=== PATIENT | male | born 2000 | race Caucasian/White ===

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

== ENCOUNTER 2022-01-19 12:58 | Emergency (ER) | payer OTHER ==
[~2022-01-19 12:58] MED LIST: Iopamidol 370 76% 100 ML VIAL ONE
[2022-01-19] MEDS ORDERED: Sodium Chloride 0.9% 1,000 ML ONE ×2 (13:39→16:11)
[2022-01-19] MEDS ORDERED: Ketorolac Tromethamine 30 MG/ML VIAL ONE ×2 (13:39→15:33)
[2022-01-19 14:15] LABS: ALT (SGPT) 40 U/L (8-55); AST (SGOT) 29 U/L (10-45); Albumin 4.8 g/dL (3.5-5.0); Alkaline Phosphatase 84 U/L (50-130); Anion Gap 16 mmol/L (10-20); BUN (Urea Nitrogen) 11 mg/dL (8.4-21.0); Bilirubin, Total 0.8 mg/dL (0.2-1.2); Calc. Creatinine Clearance 0 mL/min (70-130); Carbon Dioxide 22 mmol/L (22-29); Chloride 106 mmol/L (98-107); Estimated GFR 129; Globulin 2.4 g/dL (2.4-3.5); Glucose 94 mg/dL (70-105); Lipase 19 U/L (8-78); Magnesium 2.2 mg/dL (1.7-2.2); Protein, Total 7.2 g/dL (6.0-8.3); Sodium 140 mmol/L (136-145)
[2022-01-19 14:20] LABS: Hemoglobin 15.9 g/dL (14.0-18.0); Mean Corpuscular HGB CONC 33.6 g/dL (32.0-36.0); Mean Corpuscular Hemoglobin 29.3 pg (25.0-35.0); Mean Corpuscular Volume 87.3 fL (78.0-98.0); Platelet Count 212 thou/uL (130-400); RBC Distribution Width 10.9 % (11.5-14.5); Red Blood Cell (RBC) Count 5.43 mill/uL (4.00-5.20); White Blood Cell (WBC) Count 6.8 thou/uL (4.8-10.8)
[2022-01-19 14:21] LABS: Band 5 % (5-11); Eosinophils 1 % (0-10); Lymphocytes 14 % (28-48); MDiff Complete? YES; Monocytes 5 % (0-4); Neutrophil 68 % (31-61); Platelet Morphology Comment Appears Adequate; RBC Morphology Normal; Reactive Lymphocytes 7 % (0-10)
[2022-01-19 15:14] LABS: Bilirubin Negative (Negative); Blood, Urine Negative (Negative); Clarity Clear (Clear); Glucose, Urine (Dipstick) Negative (Negative); Ketone, Urine Negative (Negative); Leukocyte Negative (Negative); Nitrite Negative (Negative); Protein, Urine (Dipstick) Negative (Neg-Trace); Specific Gravity, Urine 1.015 (1.005-1.030); Urobilinogen 0.2 mg/dL (Less than 2)
[2022-01-19] MEDS ORDERED: Sodium Chloride 0.9% 100 ML ONE (16:11)
[2022-01-19] MEDS ORDERED: Piperacillin/Tazobactam 4.5 GM VIAL ONE (16:11)
[2022-01-19 17:34] LABS: SARS-CoV-2 NAA Rapid Test Not Detected (NotDetected)
[2022-01-19] MEDS ORDERED: Morphine 4 MG/ML VIAL ONE (19:39)
== END 2022-01-19 21:36 | disposition short-term general hospital (02) ==
LOC: MADERS 12:58
DX: K37 Unspecified appendicitis (principal); Z20.822 Contact with and (suspected) exposure to COVID-19
CPT/HCPCS: 74177; 80053; 81003; 83605; 83690; 83735; 85025; 87040; 96361; 96365; 96375; 96376; J1885; J2270; J2543; J3490; J7050; Q9967; U0002